=== PATIENT | female | born 2000 | race African-American/Black ===

== ENCOUNTER 2022-05-14 01:06 | Emergency (ER) | payer MEDICAID ==
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
[2022-05-14] MEDS ORDERED: Zofran 4 MG/2 ML VIAL IV ONE (01:11)
[2022-05-14] MEDS ORDERED: Sodium Chloride 0.9% 1000 ML 1,000 ML IV STA (01:11)
[2022-05-14] MEDS ORDERED: Ativan 2 MG/1 ML VIAL IV ONE (01:13)
[2022-05-14] MEDS ORDERED: Zofran 4 MG/2 ML VIAL ONE (01:35)
[2022-05-14] MEDS ORDERED: Sodium Chloride 0.9% 1000 ML 1,000 ML ONE (01:35)
[2022-05-14 01:44] LABS: Absolute Neutrophil Ct (ANC) 2.47 x10^3/uL (1.4-6.9); Basophil (Absolute #) 0.04 x10^3/uL (0-0.4); Eosinophil % 2.8 % (0.00-5.0); Eosinophil (Absolute #) 0.16 x10^3/uL (0-0.5); Hematocrit 38.8 % (35-47); Hemoglobin 13.3 g/dL (12.0-16.0); Lymphocyte (Absolute #) 2.42 x10^3/uL (1.0-4.6); Lymphocytes % 42.5 % (24.0-44.0); Mean Cell Volume 82.9 fL (78-100); Mean Corpuscular Hemoglobin 28.4 pg (26-32); Mean Corpuscular Hgb Concent. 34.3 g/dL (32-36); Mean Platelet Volume 9.7 fL (7.5-11.0); Monocytes % 10.5 % (0.0-12.0); Neutrophil % 43.3 % (36.0-66.0); Platelet Count 332 x10^3/uL (150-450); Red Blood Count 4.68 x10^6/uL (4.1-5.4); Red Cell Distribution Width 12.7 % (11.5-14.0); White Blood Count 5.7 x10^3/uL (4.0-10.5)
[2022-05-14 02:00] LABS: ALBUMIN 5.1 g/dL (3.5-5.0); ALKALINE PHOSPHATASE 56 U/L (38-126); ANION GAP 16.1 MEQ/L (5-15); BLOOD UREA NITROGEN 18 mg/dL (7-17); CHLORIDE 103 mmol/L (98-107); Calcium 9.7 mg/dL (8.4-10.2); Carbon Dioxide 26 mmol/L (22-30); Creatinine 1 0.78 mg/dL (0.52-1.04); EST GLOMERULAR FILTRATION RATE > 60.0 ML/MIN; Glucose 103 mg/dL (74-106); Potassium 3.3 mmol/L (3.5-5.1); SGOT/AST 28 U/L (14-36); SGPT/ALT 20 U/L (0-35); SODIUM 141 mmol/L (137-145); Total Protein 8.6 g/dL (6.3-8.2)
[2022-05-14 02:00] LABS: Bacteria MANY /HPF (NEGATIVE); Epithelial Cells RARE /HPF (FEW); Mucus SLIGHT /HPF (NEGATIVE); RBC 0-2 /HPF (0-2)
[2022-05-14 02:02] LABS: Appearance SLIGHTLY CLOUDY (CLEAR); Bilirubin NEGATIVE (NEGATIVE); Dipstick done @ ? MAIN LAB; Glucose NEGATIVE (NEGATIVE); Ketones NEGATIVE (NEGATIVE); Nitrite POSITIVE (NEGATIVE); Ph 5.5 (5-6); Protein,Urine Dip NEGATIVE (Negative); RBC NEGATIVE Ery/ul (0-5); Specific Gravity 1.025 (1.005-1.025); Urobilinogen 0.2 mg/dL (0-1)
[2022-05-14 02:03] LABS: Urine Cultured Indicated? YES
[2022-05-14] MEDS ORDERED: solu-MEDROL 125 MG, Sterile H2O 10 ml 2 ML IV ONE ×2 (02:04)
[2022-05-14 02:05] LABS: Amphetamine,Urine NEGATIVE (NEGATIVE); Barbiturate,Urine NEGATIVE (NEGATIVE); Benzodiazepine,Urine NEGATIVE (NEGATIVE); Cocaine,Urine NEGATIVE (NEGATIVE); Methadone,Urine NEGATIVE (NEGATIVE); Opiate,Urine NEGATIVE (NEGATIVE); PCP,Urine NEGATIVE (NEGATIVE); THC,Urine NEGATIVE (NEGATIVE)
[2022-05-14 02:20] LABS: INFLUENZA A NEGATIVE (NEGATIVE); INFLUENZA B NEGATIVE (NEGATIVE); RESPIRATORY SYNCTIAL VIRUS NEGATIVE (Negative); SARS-CoV-2 Xpert Express NEGATIVE (NEGATIVE)
[2022-05-14] MEDS ORDERED: ROCEPHIN 1 Gm-D5w 50 ml Bag** 1 G/50 ML IVPB IV STA (02:29)
[2022-05-14] MEDS ORDERED: Klor Con PO ONE ×2 (02:29→02:44)
[2022-05-14 02:41] VITALS: O2SAT 100
[2022-05-14] MEDS ORDERED: solu-MEDROL ONE (02:44)
[2022-05-14] MEDS ORDERED: ROCEPHIN 1 Gm-D5w 50 ml Bag** 1 G/50 ML IVPB IV ONE (02:44)
[2022-05-14 03:19] VITALS: BP 142/82; PULSE 82
--- NOTE | 2022-05-14 08:09 | XRAY ---
Indication: Asthma attack. Comparison: None Portable apical lordotic chest demonstrates normal heart, lungs, and bony thorax.
--- NOTE | 2022-05-14 08:09 | XRAY ---
Indication: Seizure. Multiple contiguous axial images obtained through the head without contrast. Comparison: None Normal appearing brain parenchyma, ventricles, and bony calvarium. Visualized paranasal sinuses and mastoid air cells are clear. Impression: Normal CT head without contrast exam. Comment: Preliminary interpretation made by [facility]. No critical discrepancy.
== END 2022-05-14 03:22 | disposition home or self-care (01) ==
LOC: ED 01:06
DX: J45.901 Unspecified asthma with (acute) exacerbation (principal); R56.9 Unspecified convulsions; N39.0 Urinary tract infection, site not specified; E87.6 Hypokalemia; Z79.52 Long term (current) use of systemic steroids
CPT/HCPCS: 0241U; 36000; 36415; 70450; 71045; 80053; 80307; 81015; 81025; 85025; 87086; 96365; 96374; 96375; 99284; 87077; 87186; J0696; J2405; J2930; A9270-GY